=== PATIENT | female | born 1955 | race Caucasian/White ===

== ENCOUNTER 2024-10-01 15:51 | Outpatient (CLI) | payer MEDICAID, SELFPAY ==
--- NOTE | 2024-10-01 13:45 | DI.RAD_ITS ---
Exam(s) XR KNEE RT 2V AP,LAT EXAM: XR KNEE RT 2V AP,LAT CLINICAL HISTORY: eval R knee OA. TECHNIQUE: 2D digital imaging was performed. COMPARISON: CR XR BONE LENGTH (LEG LENGTH) from 06/16/2023 FINDINGS: Two views There is [id number] narrowing of the medial compartment of the right knee again noted, as was also evident in June 2023. In addition to the marginal osteophytes there are prominent degenerative sub articular cysts on both sides the joint in the medial compartment. Lateral compartment exhibits relatively preserved height but some chondrocalcinosis. There also dege nerative changes of advanced nature in the patellofemoral compartment. IMPRESSION: Advanced degenerative osteoarthritic narrowing of the medial patellofemoral compartments. This bone- on-bone medial compartment findings were also evident on plain films of June 2023. DATA REPOSITORY: RADIATION DOSE DELIVERED:
== END 2024-10-01 15:52 | disposition home or self-care (01) ==
LOC: DIORS 15:51
PROVIDERS: PCP Internal Medicine; Visit Provider Student in an Organized Health Care Education/Training Program
DX: M17.11 Unilateral primary osteoarthritis, right knee (principal)
CPT/HCPCS: 73560

== ENCOUNTER 2024-11-16 01:00 | Outpatient (CLI) | payer MEDICAID, SELFPAY ==
[2024-11-16 11:44] LABS: MCH 29.1 pg (27.0-33.0); MCHC 34.2 % (32.0-36.0); MCV 85 fL (80-95); MPV 9.5 fL (8.0-11.0); Platelet Count 293 10^3/uL (130-400); RBC 4.46 10^6/uL (3.93-5.22); RDW 12.1 % (11.7-14.6); RDW-SD 37.6 fL; WBC 8.24 10^3/uL (4.4-10.8)
[2024-11-16 11:55] LABS: Anion Gap 7.9 mmol/L (3-11); BUN 17 mg/dL (7-18); CO2 28.1 mmol/L (21.0-32.0); CREATININE 0.7 mg/dL (0.55-1.02); Calcium 9.9 mg/dL (8.5-10.1); Chloride 106 mmol/L (98-107); Estimated GFR 92.98 (mL/min/1.73m2); Glucose 153 mg/dL (74-106); Potassium 3.7 mmol/L (3.5-5.1); Sodium 142 mmol/L (136-145)
== END 2024-11-16 01:01 | disposition home or self-care (01) ==
LOC: LBO 01:00
PROVIDERS: PCP Internal Medicine; Visit Provider Student in an Organized Health Care Education/Training Program
DX: M17.11 Unilateral primary osteoarthritis, right knee (principal); Z01.818 Encounter for other preprocedural examination
CPT/HCPCS: 36415; 80048; 85027

== ENCOUNTER 2024-11-28 06:57 | Day surgery (SDC) | payer MEDICAID, SELFPAY ==
[2024-11-28] VITALS (28 sets, daily range): BP systolic 114–161; BP diastolic 55–80; PULSE 72–90; RESP 13–25; TEMP 36.2–36.7; O2SAT 90–99; BMI 38.9
--- NOTE | 2024-11-28 07:22 | W.PM.DSUDISC ---
Date of service: 11/28/24 Discharge Plan Disposition Patient Disposition: Home Condition: Good Discharge Details Reason For Visit: Right knee DJD Attending Provider: Ulisses Zabala Primary Care Provider: Swapna Vee Home Meds and New Rx's Prescriptions: New meloxicam 15 mg tablet 15 mg PO DAILY Qty: 30 1RF Rx Instructions: Take one tablet daily for pain and inflammation acetaminophen 500 mg tablet 1,000 mg PO Q8H PRN Qty: 90 0RF Rx Instructions: Take two tablets up to every 8 hours as needed for pain dexamethasone 4 mg tablet 4 mg PO DAILY Qty: 2 0RF Rx Instructions: Take one tablet once daily for two days docusate sodium [Colace] 100 mg capsule 100 mg PO BID Qty: 30 0RF gabapentin 300 mg capsule 300 mg PO QHS Qty: 14 0RF Rx Instructions: Take one tablet at bedtime oxycodone 5 mg tablet 5 mg PO Q4H PRNQty: 18 0RF Rx Instructions: Take one tablet up to every 4 hours as needed for severe postoperative pain Continued amlodipine 5 mg tablet 5 mg PO DAILY atorvastatin 40 mg tablet 40 mg PO DAILY losartan 100 mg tablet 100 mg PO DAILY pantoprazole 40 mg tablet,delayed release (DR/EC) 40 mg PO DAILY metoprolol succinate [Toprol XL] 50 mg tablet extended release 24 hr 50 mg PO DAILY Patient Comments: pt. states she doesnt take clopidogrel 75 mg tablet Patient Comments: TAKE ONE TABLET BY MOUTH EVERY DAY Discontinued ibuprofen 800 mg tablet 800 mg PO TID PRN aspirin [Adult Aspirin Regimen] 81 mg tablet,delayed release (DR/EC) 81 mg PO DAILY No Action ibuprofen 800 mg tablet Patient Comments: TAKE ONE TABLET BY MOUTH THREE TIMES A DAY NEEDED FOR PAIN Discharge Instructions Additional Instructions: Total Knee Discharge Instructions Activity: The most important activity is to walk and to work on gentle motion (both flexion and extension). You should try to take short walks a few times a day. It is important that when resting you work on keeping the knee straight. Avoid putting a pillow behind the knee as this will encourage flexion. Work on range of motion exercises as provided by Physical Therapy. - Start outpatient physical therapy within 2 weeks. - You should wear the VIOLETTA hose on both legs for 2 weeks. You may remove these at night. You may also use any compression sock in place of the VIOLETTA hose. - Utilize [employer] to review exercises, see videos on exercises and obtain basic information pertaining to your surgery and your recovery. Dressing: Remove the Raffy wrap by 2 days after your surgery and put on the VIOLETTA stocking given to you from the hospital. Keep the surgical dressing (underneath the RAFFY wrap) in place for at least one week. After the first week it may be removed and replaced with light gauze and tape or nothing. The wound and dressing may get wet after 3 days but avoid soaking the dressing or otherwise it will need to be changed. Many people prefer covering the dressing with cling wrap (saran wrap) to minimize it from getting soaked. If it gets wet, just pat dry. If it starts to peel off then it will need to be changed. Medications: - You should take Tylenol and anti-inflammatory Meloxicam as your primary pain control medications. If the Meloxicam is too expensive or not covered, please call the office for another alternative (Advil/Ibuprofen or Naproxen/Aleve) - You have been prescribed a stronger pain medication Oxycodone for breakthrough pain, take as needed as prescribed. - You take a stomach acid reduction agent Pantoprozole at baseline - continue with this medication to help reduce stomach acid and reflux. - You have been prescribed Gabapentin to take at night for restlessness and nerve pain. - You will resume taking nation of aspirin and clopidogrel tomorrow. - You have also been prescribed Decadron to take to control post-operative nausea and pain. You will start this tomorrow. - If you have constipation you should take Colace (which has been prescribed) or Miralax (which is available [id number]). It takes most people 3-4 days to have a bowel movement. Follow-up: 2 weeks If you have any acute concerns or questions, please do not hesitate to contact the office at [phone]. You may contact Dr. Zabala with any questions after hours through the hospital at [phone] or on his cell phone at [phone]. Stand Alone Forms: Anesthesia Discharge Inst., Yogi.Nerve Block Instructions, Joo Giles ([facility]) Referrals: Ulisses Zabala MD [ [facility] STAFF PHYSICIAN] - 12/13/24 11:00 am Equipment/Supplies: Walker Activity:: Activity as Tolerated Remove Dressings/Wound Care:: Do Not Remove Shower/Bathe:: Cover Diet:: As Tolerated Discharge Orders Discharge Orders: Discharge Order (Routine); Ordered 11/28/24 Ordered By: Zara Reynaga
[2024-11-28] MEDS: Acetaminophen 500 MG TAB 1000 MG PO (08:17)
[2024-11-28] MEDS: Celecoxib 200 MG CAP 400 MG PO (08:17)
[2024-11-28] MEDS: Gabapentin 300 MG CAP PO (08:17)
--- NOTE | 2024-11-28 08:20 | W.ANESPRE ---
General Info Date of Service Date Performed: 11/28/24 Height: 5 ft 2 in Weight: 96.7 kg Body Mass Index (BMI): 38.9 Surgical Procedure: Operation Date: 11/28/24 09:40 Proposed Procedure Side Surgeon p Knee Total Arthroplasty w/OrthAlign, Cementless Right Ulisses Zabala MD Actual Procedure Side Surgeon p Knee Total Arthroplasty w/OrthAlign, Cementless Right Ulisses Zabala MD Pre-Op Diagnosis Post-Op Diagnosis Osteoarthritis of right knee Osteoarthritis of right knee Meds Allergies and Home Medications Allergies Allergy/AdvReac Type Severity Reaction Status Date / Time No Known Allergies Allergy Verified 11/28/24 07:50 Home Medication ?Medication ?Instructions ?Recorded amlodipine 5 mg tablet 5 mg PO DAILY 07/25/24 atorvastatin 40 mg tablet 40 mg PO DAILY 07/25/24 losartan 100 mg tablet 100 mg PO DAILY 07/25/24 metoprolol succinate 50 mg 50 mg PO DAILY 07/25/24 tablet,extended release 24 hr (Toprol XL) pantoprazole 40 mg tablet,delayed 40 mg PO DAILY 07/25/24 release acetaminophen 500 mg tablet 1,000 mg (2 x 500 mg) PO Q8H PRN 11/28/24 pain #90 tabs aspirin 81 mg tablet,delayed 81 mg PO BID 30 days #60 tabs 11/28/24 release clopidogrel 75 mg tablet mg 11/28/24 dexamethasone 4 mg tablet 4 mg PO DAILY #2 tabs 11/28/24 docusate sodium 100 mg capsule 100 mg PO BID #30 caps 11/28/24 (Colace) gabapentin 300 mg capsule 300 mg PO QHS #14 caps 11/28/24 ibuprofen 800 mg tablet mg 11/28/24 meloxicam 15 mg tablet 15 mg PO DAILY #30 tabs 11/28/24 oxycodone 5 mg tablet 5 mg PO Q4H PRN #18 tabs 11/28/24 Current Visit Medications: Current Medications Generic Name Dose Route Start Last Admin Trade Name Freq PRN Reason Stop Dose Admin Acetaminophen 1,000 mg 11/28/24 06:00 11/28/24 08:17 Acetaminophen 500 Mg Tab PO 11/28/24 23:59 1,000 mg PREOP KRISTINE Administration Celecoxib 400 mg 11/28/24 06:00 11/28/24 08:17 Celecoxib 200 Mg Cap PO 11/28/24 23:59 400 mg PREOP KRISTINE Administration Droperidol 0.625 mg 11/28/24 07:43 Droperidol 2.5 Mg/Ml Vial IVP 12/28/24 07:42 DIRECTED PRN Ephedrine Sulfate 0 mg 11/28/24 07:43 Ephedrine 25 Mg/5 Ml Syringe IVP 12/28/24 07:42 DIRECTED PRN Fentanyl 0 mcg 11/28/24 07:43 Fentanyl 100 Mcg/2 Ml Vial IVP 12/28/24 07:42 DIRECTED PRN Gabapentin 300 mg 11/28/24 06:00 11/28/24 08:17 Gabapentin 300 Mg Cap PO 11/28/24 23:59 300 mg PREOP KRISTINE Administration Hydromorphone HCl 0.5 mg 11/28/24 07:20 Hydromorphone 2 Mg/Ml Syr IVP 12/28/24 07:19 Q2H PRN PRN Hydromorphone HCl 0 mg 11/28/24 07:43 Hydromorphone 1 Mg/Ml Syr IVP 12/28/24 07:42 DIRECTED PRN Ringer's Solution 1,000 mls @ 80 mls/hr 11/28/24 06:00 IV 11/28/24 23:59 INFUSION KRISTINE Cefazolin Sodium/Dextrose 2 gm in 50 mls @ 100 mls/hr 11/28/24 06:00 Ancef Duplex IVPB 11/28/24 23:59 PREOP KRISTINE Tranexamic Acid/Sodium Chloride 1,000 mg in 100 mls @ 600 mls/hr 11/28/24 06:00 IVPB 11/28/24 23:59 PREOP KRISTINE Cefazolin Sodium/Dextrose 1 gm in 50 mls @ 100 mls/hr 11/28/24 08:00 Ancef Duplex IVPB 11/29/24 00:29 Q8H KRISTINE IV Miscellaneous Supplies 1 each 11/28/24 06:00 Iv Access IV 11/28/24 23:59 DIRECTED KRISTINE Naloxone HCl 0 mg 11/28/24 07:43 Naloxone 0.4 Mg/Ml Vial IVP 12/28/24 07:42 PRN PRN Oxycodone HCl 0 mg 11/28/24 07:20 Oxycodone 5 Mg Tab PO 12/28/24 07:19 Q3H PRN PRN Pain Sodium Chloride 0 ml 11/28/24 06:00 Normal Saline Flush 10 Ml Syr IV 11/28/24 23:59 PRN PRN Sodium Chloride 0 ml 11/28/24 06:00 Normal Saline 10 Ml Vial IJ 11/28/24 23:59 DIRECTED PRN Sterile Water 0 ml 11/28/24 06:00 Water,Injection,Sterile 10 Ml Vial IJ 11/28/24 23:59 DIRECTED PRN PFSH Active Problems Active Problems: Problem Status Onset Code Colostomy in place Chronic Z93.3 S/P coronary artery stent placement Acute Z95.5 Osteoarthritis of right knee Acute M17.11 Obesity Chronic E66.9 Hypertensive disorder Chronic I10 Hyperlipidemia Acute E78.5 GERD (gastroesophageal reflux disease) Chronic K21.9 CAD (coronary artery disease) Chronic I25.10 Surgical History Surgical History Hx of cholecystectomy History of cardiac catheterization DOS 07/28/23, s/p stent placement History of total left knee replacement Tobacco Smoking/Tobacco Use Status: Never Alcohol Alcohol Intake: never Substance Use Substance use: Never Substance use type: does not use Vital Signs and Lab Results Vital Signs Most Recent Vital Signs in EMR: Most Recent Vital Signs Temp Pulse Resp BP Pulse Ox 36.5 C 85 20 161/75 H 97 11/28/24 08:06 11/28/24 08:06 11/28/24 08:06 11/28/24 08:06 11/28/24 08:06 Lab Results Blood Type / Crossmatch: No Data to Display Complete Blood Count: White Blood Count 8.24 10^3/uL (4.4-10.8) 11/16/24 11:14 Red Blood Count 4.46 10^6/uL (3.93-5.22) 11/16/24 11:14 Hemoglobin 13.0 g/dL (11.2-15.7) 11/16/24 11:14 Hematocrit 38.0 % (36.0-46.0) 11/16/24 11:14 Platelet Count 293 10^3/uL (130-400) 11/16/24 11:14 Complete Metabolic Panel: Sodium 142 mmol/L (136-145) 11/16/24 11:14 Potassium 3.7 mmol/L (3.5-5.1) 11/16/24 11:14 Chloride 106 mmol/L (98-107) 11/16/24 11:14 Carbon Dioxide 28.1 mmol/L (21.0-32.0) 11/16/24 11:14 BUN 17 mg/dL (7-18) 11/16/24 11:14 Creatinine 0.7 mg/dL (0.55-1.02) 11/16/24 11:14 Est GFR (CKD-EPI 2020) 92.98 (mL/min/1.73m2) 11/16/24 11:14 Calcium 9.9 mg/dL (8.5-10.1) 11/16/24 11:14 Glucose 153 mg/dL (74-106) H 11/16/24 11:14 Liver Function Panel: No Data to Display Coagulation Panel: No Data to Display Cardiac Panel: No Data to Display Arterial Blood Gas: No Data to Display Venous Blood Gas: No Data to Display Pancreas Panel: No Data to Display Thyroid Panel: No Data to Display Infectious Disease: No Data to Display Blood Cultures: No Data to Display Toxicology Panel: No Data to Display Anesthesia Assessment and Plan Anesthesia History Personal History: No History of Anesthesia Complications Family History: No Family History of Anesthesia Complications Exercise Tolerance Exercise Tolerance: Metabolic Equivalents>4 Pertinent Negatives Pertinent Negatives: No Symptoms of GERD Cardiac & Pulmonary Exam Cardiac Exam: Normal S1/S2 Heart Sounds Pulmonary Exam: Clear Bilateral Breath Sounds Implantable Cardiac Device Does patient have a Pacemaker or an ICD?: No Airway Exam Known Difficult Airway: No Mallampati Class: 3 Mouth Opening: Normal (> 3cm) Thyromental Distance: Greater than 3 cm Neck Range of Motion: Full ROM Neck Circumference: Thick Teeth Condition: Normal Dentition ASA Classification ASA Score: ASA 3 Emergency Case?: No NPO Status NPO Status: NPO Clears >2 hours, Solids >8 hours Anesthesia Plan Resuscitation Status: Full Code Anesthesia Technique: General Anesthesia Airway Planned: Endotracheal Tube Pain Management: Surgeon and patient request nerve block Monitors Used: Standard Monitors Preoperative Comments:: Pt has extensive cardiac history as noted in record. Cleared by cardiology. Pt did not stop Plavix so no SAB. Consented for SHIRLEYA. Paul Guzman CRNA
[2024-11-28] MEDS: Lactated Ringers 1,000 ML 80 ML IV (08:30)
--- NOTE | 2024-11-28 09:00 | W.ANESNERVE ---
Nerve Block Single Injection Procedure Date and Time Date Performed: 11/28/24 Procedure Start: 08:48 Location Where Procedure Performed Procedure Location: Operating Room Procedure Stop: 08:54 Reason Performed: Postoperative Analgesia Requesting Provider: Ulisses Zabala Timeout Performed Timeout Performed: Yes Monitoring Used ECG, Blood Pressure, SpO2 and See EMR for corresponding vital signs Sterility Sterility: Hand Hygiene, Surgical Cap, Surgical Mask, Sterile Gloves, Eye Protection and Chlorhexidine Sedation Given During Procedure Sedation Given (Indicate Dose Given): Versed IV Dose:: 2mg IVP Patient Mental Status Patient Mental Status: Sedate with meaningful communication Nerve Block 1st Nerve Block: Laterality: Right Block Type: Adductor Canal Ultrasound Image Saved?: Yes Needle / Catheter Used: 100mm SonoPlex II Local Anesthetic Bolus (Indicate Dose Given): Lidocaine used for local infiltration of skin and Ropivacaine 0.5% Dose:: 0.5%/25cc (125mg) Additives (Indicate Dose Given): Epinephrine to make 1:200,000 (5mcg/ml) Dose:: 125mcg and Decadron Dose:: 10mg PF Ultrasound: Sterile probe cover and gel used Nerve Stimulator: Not Used Paresthesia: None Procedure Tolerated: No Complications and Patient tolerated well Procedure Outcome: Successful Performed By: Ankur Guzman
--- NOTE | 2024-11-28 09:02 | NUR.NOTE ---
0815: Blaze Melendez CRNA in room. ELECTRICAL HELPER aware pt. took Plavix this mornings. ELECTRICAL HELPER spoke to MD. Surgery will proceed, anesthesia approach will be differentNursing Note:
[2024-11-28] MEDS: ceFAZolin 2 GM/50 ML BAG IVPB (09:25)
[2024-11-28] MEDS: TRANEXAMIC ACID/SOD. CHL. 1,000 MG/100 ML BAG 600 MG IVPB (09:35)
[2024-11-28] MEDS: fentaNYL 100 MCG/2 ML VIAL IVP (12:16)
--- NOTE | 2024-11-28 15:09 | PT.INIE ---
PT Notes Visit Reasons: Right knee DJD Physical Therapy Day Surgery Initial Evaluation Date: 11/28/2024 Referring Doctor: Dr. Sagrario Gutierres PT Orders: PT CONSULT: Status post Ortho surgery Precautions: WBAT RLE,TEDS x 2 weeks Patient Profile/Admitting Diagnosis: Patient is 69-year-old female presenting status post elective right TKA. MD notes preoperative knee range of motion 30 to 80 degrees with significant bony fragments removed. Postop uncomplicated. PMHX: History of left TKA, colostomy, status post coronary artery stents, obesity, hypertension, hyperlipidemia, GERD, CAD Social History/Home Situation: Pt resides in single family home with 3 JOSE RAMON with 2 rails. 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 Pt is independent with ADL, home management, med management, cooking, driving. Patient independent toileting needs Equipment Owned/DME: Pt has FWW , cane and Quad cane, grab bars in tub/shower and tub seat. Subjective: Pt asking multiple times when she can start driving her tractor. She was instructed to see Dr Zabala at her follow up then the decision can be made from there. Objective: [] General Observation: Pt is awake semireclined on stretcher with cryocuff to right knee. Her responsible person is Edward Mental Status:Alert and Oriented, Pt slow to respond at times stating she is sleepy. Pain: 2/10 right knee with ambulation and ROM ROM: [] Right Upper Extremity: WFL except shoulder to 90 degrees Left Upper Extremity: WNL Right Lower Extremity:hip and ankle WNL, knee 0-100 degrees Left Lower Extremity: WFL Strength: [] Right Upper Extremity: 4/5 Left Upper Extremity: 5/5 Right Lower Extremity: hip 3/5, knee extension 3/5, slight lag noted during SLR with repitition, ankle 3/5 Left Lower Extremity:5/5 Sensation: intact Bed Mobility/Transfers: [] Supine to sit independent Sit to supine min assist for lower extremity Sit to stand supervision Stand to sit supervision Bed to chair supervision with FWW Gait: Ambulates with FWW supervised 150 feet including turns on level surfaces patient demonstrates decreased knee flexion during swing phase early heel off slight lateral weight shift and hip hike for foot clearance Stairs: Up-and-down 5 steps with rails contact-guard assist step to pattern Balance: [] Static Sitting: Normal Dynamic Sitting: Good Static Standing: Good Dynamic Standing: Fair plus Special Tests: [] Mobility Limitations Standardized Measure [] [facility] AM-PAC 6 clicks Basic Mobility Inpatient Short Form: [] Raw Score: 21 CMS Score: 28.97% Informed Consent/Education: Patient instructed in purpose of PT consult. Packet containing TKA exercise protocol has been given to patient. Education and training on initial set of exercises that can be done at home have been completed with patient. Treatment 68412, functional mobility with FWW including stairs with 2 rails CGA with her responsible person, Shaan present. Assessment: Patient is a 69 yo female who presents with clinical signs and symptoms consistent with current/admitting diagnoses that have resulted to mobility limitations, gait instability, generalized weakness, and impairment of motor control as demonstrated by the following impairment level findings: 1. Decreased strength to right knee major muscle groups 2. Impaired standing balance 3. Limitation of joint range of motion in right knee 4. Impaired standing functional activity tolerance Impairments are contributing to the following functional limitations: 1. Inability to safely ambulate without assistive device 2. Increase completion time for mobility ADL performance 3. Increased fall risk 4. Impaired bed mobility skills 5. Difficulty performing stairs safely independently Patient is assessed as a moderate complexity based on the following: History: 69 -year-old female with impairment level findings, functional limitations, and past medical history as indicated above Examination: Demonstrable impairment in strength, balance, and mobility level with underlying impairments and functional limitations as documented above Presentation: stable Decision Making:moderate Goals: N/A. Plan of Care/Treatment Plan: N/A. DISCHARGE RECOMMENDATIONS: Home with out patient PT as scheduled TREATMENT CODE/TIME:30969, [id number]/ 200pm-240pm Thank you for the opportunity to participate in the care of this patient. Tiffani Tapia, PT [facility]
--- NOTE | 2024-11-28 15:59 | W.ANESPOSTOP ---
Postoperative Evaluation Date, Time and Location Date Performed: 11/28/24 Time Performed: 13:40 Patient Location: Day Surgery Unit Vital Signs Most Recent Imported Vital Signs: Most Recent Vital Signs Temp Pulse Resp BP Pulse Ox 36.4 C L 83 20 130/67 95 11/28/24 13:40 11/28/24 13:40 11/28/24 13:40 11/28/24 13:40 11/28/24 13:40 Pain Score Most Recent Pain Score: Most Recent Pain Score Pain Level 0 11/28/24 15:00 Assessment Mental Status: Awake (Alert & Oriented to Patient Baseline) Airway and Respiratory Function: Patent airway with normal (patient baseline) respiratory exam Cardiovascular Function: Hemodynamically Stable Hydration Status: Adequately Hydrated Nausea & Vomiting: No Nausea or Vomiting Pain: Pain is tolerable per patient Peripheral Nerve Block: Regional nerve block not resolved at time of post operative discharge
--- NOTE | 2024-11-28 16:12 | W.PM.OP ---
Operative Note Operative Note PRE-OP DIAGNOSIS: Right Knee Osteoarthritis POST-OP DIAGNOSIS: same PROCEDURE: Right Total Knee Replacement with Intraoperative Navigation SURGEON: Ulisses Zabala [employer]IDE [employer] ENGINEER: Zara Reynaga ANESTHESIA TYPE: General LMA/ETT Refer to Anesthesia Record ESTIMATED BLOOD LOSS: 150 PATHOLOGY: none sent TOURNIQUET TIME: 0 COMPLICATIONS: None Patient was transported to: PACU Patient's condition: stable Implants: 1. Depuy Attune Cementless Cruciate Retaining Femoral Component, Size 6 2. Depuy Attune Cementless Fixed Bearing Tibial Component, Size 4 3. Depuy Attune 6x6mm CR/FB Poly 4. Depuy Attune Patellar Component, Size 35 Indications: I have seen Adela in clinic for symptoms of RIGHT knee arthritis, confirmed with radiographic findings. Adela has exhausted nonoperative methods and was having significant limitations in daily function and desired better function and less pain. I discussed the technical details of a knee replacement. I explained the risks of the procedure to include, but not limited to, bleeding, infection, pain, stiffness, fracture, damage to nerves and vessels, damage to muscles and tendons, loosening, need for repeat procedure, blood clot and cardiopulmonary demise. Despite these risks, Adela elected to proceed. Findings: There was significant signs of arthritis throughout the knee with large osteophytes and deformity throughout. Her preoperative range of motion was 30 to 80 degrees. There was notable contracture of the MCL around large osteophytes. An aggressive medial resection and osteophyte resection was performed. Procedure Description: Adela was greeted in the preoperative holding area where the correct side was identified and marked. The consent was reviewed with the patient and signed. The history and physical was updated. All questions were answered. Preoperative mediacations were administered: Acetaminophen 1000mg, Celebrex 400mg, and Gabapentin 300mg. An adductor canal block was then administered by the anesthesia team in the DSU. Adela was taken back to the operating room. A general anesthestic was then administered. The patient was placed into the supine position on the operating room table. Posts were placed for positioning during the procedure. All bony prominences were well padded. Prophylactic antibiotics in the form of Cefazolin were administered. 1g of Tranxemic Acid was given intravenously within 30 minutes of incision. The right leg was then prepped with Chloraprep and draped in a standard fashion with impervious stockinette. A second prep with Chloraprep was performed prior to application of Iodine impregnated skin protection. A timeout to confirm correct identity, side and site, procedure, allergies, anesthesia, and medical concerns was performed. With the knee in some flexion, a midline incision was made overlying the knee. Full thickness skin flaps were raised once the extensor mechanism was encountered. These were raised medially and laterally. Any bleeding was controlled with electrocautery. Once the extensor mechanism was fully exposed, a medial parapatellar arthrotomy was performed in a flexed position. All bleeding from the arthrotomy and the geniculate arteries was coagulated. A medial subperiosteal peel was performed with electrocautery to the midcoronal plane. Due to the significant varus deformity the entire medial tibial plateau was exposed. The fat pad was removed while keeping the patellar tendon protected. The anterior distal femur synovium was removed for later visualization. The ACL and PCL were resected and the anterior horn of the lateral meniscus was transected. The knee was then flexed with the patella everted. Large osteophytes from the tibia were removed. Large osteophytes from the femur were removed. Exposure was challenging given her limited motion. Preoperatively, prior to incision, her range of motion was 30 to 80 degrees. Dissection was carried around the medial plateau although to the posterior medial corner. Large osteophytes were seen throughout the entire medial tibia medial femur which were worked off of the tibia. There is notable laxity about the lateral compartment although the LCL was intact. A single starting pin was then placed 1cm anterior to the PCL insertion and the notch in the direction of the femoral head. The OrthoAlign device was applied over the pin. It was oriented to be in line with the epicondylar axis and the trochlear groove. It was then pinned into place. The navigation computer was then turned on and calibrated. The distal femur cut was set at 0.5 degrees varus and 3.5 degrees flexion. The distal femur cutting guide then was positioned for a 9mm cut. The distal femur was cut with an oscillating saw while protecting the soft tissues. The tibia was then addressed. The OrthoAlign device was placed over the tibial tubercle and medial tibia and secured into position. Once again, OrthoAlign was calibrated and then set for a 2.5 degree varus cut and 5.5 degrees of posterior slope. With this locked into position, the cut thickness stylus was used to assess cut thickness. The medial side, most involved side, was set for a 3mm cut. This was then held in position and pinned into place with 2 additional pins and a cross pin for stability. The medial and lateral collateral ligaments were protected and the cut was performed. With this completed, it was assessed and noted to be of appropriate dimensions. The guide and OrthoAlign was removed. A spacer block was inserted and the knee was brought into extension to ensure enough space was present. . The Orthoalign gap balancing device was then placed in extension. This was used to ensure that the ligaments were properly balanced with up to 2 to 3 mm laxity laterally compared medially. The extension gap was measured as 19mm. The knee was then brought into 90 degrees of flexion and the ligament rehabilitator was once again placed. Under the same amount of force the flexion gap was measured. The Attune specific jig was placed and the flexion gap was made to match the extension gap. The femur was then sized as a size 6. The 4-in-1 cutting guide was the placed. An lauri wing was used to confirm appropriate position of the anterior cut to avoid notching. This cutting guide was ensured to be flush on the cut surface and then pinned into place with headed pins. While protecting the soft tissues, quad tendon, and collateral ligaments, the anterior and posterior cuts were performed with a saw. The central two pins were removed and the posterior and anterior chamfers were cut next. The notch-cutting guide was placed. This was pinned to lateralize the femoral component as much as possible while keeping it flush on the cut surface. This was then pinned into position. A saw was used to make the notch cut. A rasp smoothed the cut surfaces. The medial and lateral menisci were removed. A trial femoral component was then inserted, impacted down to the cut surfaces, and the lug holes were drilled. A provisional trial tibial component was placed and the knee was brought through range of motion. The polyethylene was trialed until there was good flexion and extension with excellent stability to the medial and lateral collaterals. The patella was tracking without thumbs. A size 6mm polyethylene component provided the best range of motion and stability with less than 2mm gapping with medial and lateral stress and full extension without significant hyperextension. The tibial cut surface was fully exposed. The tibia was then sized as a 4. The tibia had been previously marked during trialing to correspond to the center of the tibial component to help with rotation. The trial was aligned to this edwin, approximately rotated to the medial 1/3rd of the tibial tubercle. The trial was pinned into place. The tibia was prepared with a reamer and a keel punch and lug holes. The knee was then brought into extension and the patella was measured as 25mm. Using the patellar clamp and cut guide, this was resected to a flat surface with at least 13mm of thickness remaining. The size 35 patella fit the best. This was oriented and then clamped into position. The lugs were drilled. The trial components were removed. The final components were opened on the back table. The periosteal and capsular tissues, especially posteriorly, around the knee were then systematically injected with a periarticular cocktail consisting of 246mg of Ropivacaine, 0.5mg of Epinephrine, 0.08mg of Clonidine, and 30mg of Ketorolac, diluted to 100cc. On the back table, with the implants opened, the cement was mixed. One batch of high viscosity cement was prepared with vacuum assistance. After the cement was ready a small amount was placed on the cut surface of the patella and the patellar button was clamped into position and held. While the cement was hardening, the cementless knee components were placed. Starting with the tibial component, the tibia was subluxed anteriorly and the lug holes of the component were lined up. The tibia was then impacted with an impactor and mallet until the tibial component was in contact with the tibia. Then, the femoral component was inserted. The lug holes were aligned and the component was impacted into position. The final polyethylene component was inserted. The knee was irrigated with Surgiphor Betadine solution. This was allowed to sit in the knee for 3 minutes and then it was thoroughly irrigated out with saline. After the cement had finally cured, approximately 15min, the clamp was removed from the patella and the knee was taken through range of motion. The patella was tracking with a no-thumbs technique. The capsule was then reapproximated with a No. 1 Vicryl at multiple locations. The capsule was finally closed with a No. 2 Stratafix, barbed suture. Deep tissues were then reapproximated with 0 Vicryl and 2-0 Vicryl. The skin was closed with a running 3-0 Monocryl in a subcuticular fashion. This was reinforced with skin glue. A Mepilex silver dressing was applied along with a [id number] AARON wrap. A CryoCuff was applied. Adela was transferred to the hospital bed without difficulty an suffering no apparent complication. Adela has a good prognosis. Physical therapy will start today and without restrictions, weight-bearing as tolerated. Aspirin 81mg BID and Plavix, her home dose, will be used for DVT prophylaxis. Date of Procedure: 11/28/24
== END 2024-11-28 15:17 | disposition home or self-care (01) ==
PROVIDERS: PCP Internal Medicine; Visit Provider Student in an Organized Health Care Education/Training Program
PROC: (CPT 27447; principal; 2024-11-28 09:30)
DX: M17.11 Unilateral primary osteoarthritis, right knee (principal); G89.18 Other acute postprocedural pain; M25.561 Pain in right knee; I10 Essential (primary) hypertension; I25.10 Atherosclerotic heart disease of native coronary artery without angina pectoris; K21.9 Gastro-esophageal reflux disease without esophagitis; E78.5 Hyperlipidemia, unspecified
CPT/HCPCS: 27447; 20985; 64447; 97162; 97530; C1776; J0171; J0690; J1100; J2250; J2371; J2405; J2704; J2795; J3010

== ENCOUNTER 2024-12-13 13:45 | Outpatient (CLI) | payer MEDICAID, SELFPAY ==
--- NOTE | 2024-12-13 12:00 | DI.US_ITS ---
Exam(s) US LOWER EXTREMITY VENOUS RT EXAM: US LOWER EXTREMITY VENOUS RT CLINICAL HISTORY: RT LEG PAIN, ? DVT, R TKA-11/28/24, Z96.651, M79.604. TECHNIQUE: Lower extremity venous ultrasound performed using grayscale, color-flow, and spectral Do ppler analysis. COMPARISON: CR XR STANDING ALIGNMENT from 12/13/2024 CR XR KNEE RT 1V from 12/13/2024 FINDINGS: The patient did not tolerate compression due to pain. The common femoral, proximal to mid femoral and popliteal veins demonstrate normal compressibility, a ugmentation, and color Doppler. The posterior tibial and peroneal veins were not well visualized. The distal femoral vein was also n ot optimally visualized. No saphenous vein thrombosis or other superficial venous thrombosis is seen. No hematoma or Murphy's cyst is seen. Subcutaneous edema is present in the lower leg. IMPRESSION: No evidence of DVT however the distal femoral vein as well as peroneal and posterior tibial veins wer e suboptimally visualized. DATA REPOSITORY:
== END 2024-12-13 14:05 ==
LOC: DI 13:46
PROVIDERS: PCP Internal Medicine; Visit Provider Student in an Organized Health Care Education/Training Program
DX: Z96.651 Presence of right artificial knee joint (principal); M79.604 Pain in right leg
CPT/HCPCS: 93971

== ENCOUNTER 2024-12-13 15:28 | Outpatient (CLI) | payer MEDICAID, SELFPAY ==
--- NOTE | 2024-12-13 11:30 | DI.RAD_ITS ---
Exam(s) XR KNEE RT 1V XR STANDING ALIGNMENT EXAM: XR STANDING ALIGNMENT CLINICAL HISTORY: F/U RIGHT TKR. TECHNIQUE: 2D digital imaging was performed. Standing AP views were performed from the pelvis throu gh the ankles. COMPARISON: CR XR BONE LENGTH (LEG LENGTH) from 06/16/2023 CR XR KNEE RT 2V AP,LAT from 10/01/2024 CR XR KNEE RT 1V from 12/13/2024 FINDINGS: BONES: No acute fracture is present. No bony destructive lesion is seen. Leg length discrepancy: No significant overall leg length discrepancy. JOINTS: Knees: Bilateral total knee prostheses. There has been no change in the appearance of the le ft knee prostheses. The right knee prosthesis is new since the prior exam and show satisfactory alig nment. The ankle joints are unremarkable. The hip joints are unremarkable. SOFT TISSUE: Calcified uterine fibroid again noted. Bilateral lower leg edema, right greater than le ft. IMPRESSION: Bilateral total knee prostheses. No significant leg length discrepancy. DATA REPOSITORY: RADIATION DOSE DELIVERED:
== END 2024-12-13 15:29 | disposition home or self-care (01) ==
LOC: DIORS 15:28
PROVIDERS: PCP Internal Medicine; Visit Provider Student in an Organized Health Care Education/Training Program
DX: Z96.651 Presence of right artificial knee joint (principal); Z47.1 Aftercare following joint replacement surgery
CPT/HCPCS: 73560; 77073